=== PATIENT | male | born 1955 | race Caucasian/White ===

== ENCOUNTER 2017-02-19 18:14 | Emergency (ER) | payer MEDICAID ==
[2017-02-19 18:34] VITALS: BMI 23.6
[2017-02-19 18:35] VITALS: BP 146/96; PULSE 75; RESP 18; TEMP 98.4; O2SAT 98
--- NOTE | 2017-02-19 19:51 | C.PDOC ---
History Of Present Illness 61 year old male complains of cough productive of white phlegm for 5 days reports feeling wheeze this evening. Patient was a former smoker, quit 6 years ago. Time Seen by Provider: 02/19/17 19:27 Chief Complaint (Nursing): Cough, Cold, Congestion History Per: Patient History/Exam Limitations: no limitations Onset/Duration Of Symptoms: Days Current Symptoms Are (Timing): Still Present Associated Symptoms: Cough, Sputum Past Medical History Reviewed: Historical Data, Nursing Documentation, Vital Signs Vital Signs: Last Vital Signs Temp 98.4 F 02/19/17 18:34 Pulse 75 02/19/17 19:53 Resp 18 02/19/17 19:53 BP 146/96 H 02/19/17 18:34 Pulse Ox 98 02/19/17 19:53 - Medical History PMH: Asthma, HTN, Hypercholesterolemia Surgical History: No Surg Hx Family History: States: Unknown Family Hx - Social History Hx Tobacco Use: No (quit 6 years ago) Hx Alcohol Use: No Hx Substance Use: No - Immunization History Hx Tetanus Toxoid Vaccination: No Hx Influenza Vaccination: No Hx Pneumococcal Vaccination: No Review Of Systems Constitutional: Negative for: Fever, Weakness, Malaise Eyes: Negative for: Pain ENT: Positive for: Nose Congestion. Negative for: Ear Pain, Throat Pain Cardiovascular: Negative for: Chest Pain, Palpitations Respiratory: Positive for: Cough, Sputum, Wheezing. Negative for: Shortness of Breath, Pleuritic Pain Gastrointestinal: Negative for: Vomiting, Abdominal Pain, Diarrhea Musculoskeletal: Negative for: Neck Pain, Back Pain Skin: Negative for: Rash Neurological: Negative for: Headache, Dizziness Physical Exam - Physical Exam Appears: Non-toxic, No Acute Distress Skin: Warm, Dry, No Diaphoretic, No Pale, No Rash Head: Atraumatic, Normacephalic Eye(s): bilateral: Normal Inspection, PERRL, EOMI Ear(s): Bilateral: Normal (no erythema) Nose: Normal, No Flaring Oral Mucosa: Moist Throat: Normal, No Erythema, No Exudate, No Drooling, No Mass Neck: Normal ROM Chest: Symmetrical Cardiovascular: Rhythm Regular, No Murmur Respiratory: Normal Breath Sounds, No Rales, No Rhonchi, Wheezing (expiratory wheeze) Extremity: Bilateral: Atraumatic, Normal Color And Temperature, Normal ROM Neurological/Psych: Oriented x3, Normal Speech ED Course And Treatment O2 Sat by Pulse Oximetry: 98 Medical Decision Making Medical Decision Making: Symptoms consistent with URI. Patient has no fever and stable vital signs during ER evaluation. No repiratory distress and O2 sat is 98%. Patient feels comfortable going home and will be discharged. Patient given follow up instructions. Instructed to return to ER if symptoms worsen or new symptoms arise. Disposition Counseled Patient/Family Regarding: Diagnosis, Need For Followup, Rx Given - Disposition Referrals: Maynor Babb MD [Medical Doctor] - Disposition: HOME/ ROUTINE Disposition Time: 19:49 Condition: STABLE Additional Instructions: Vaya a griffin mdico o la clnica en 1-3 hay sin falta, para mas evaluacin. [place] los medicamentos lucrecia indicado. Volver a la soo de emergencia en cualquier momento si los sntomas persisten o empeoran. Prescriptions: Albuterol HFA [Ventolin HFA 90 mcg/actuation (8 g)] 1 puff IH Q4 #1 puff Azithromycin 1 tab PO DAILY #4 tab Promethazine DM [Phenergan DM Syrup] 5 ml PO Q8 PRN #3 oz PRN Reason: Cough Instructions: Upper Respiratory Infection (ED) Print Language: MAURITIAN - POA Present On Arrival: None - Clinical Impression Clinical Impression: Upper respiratory infection - PA / [employer] / Resident Statement / has reviewed & agrees with the documentation as recorded.
== END 2017-02-19 19:56 | disposition home or self-care (01) ==
LOC: C.ER 18:14
DX: J06.9 Acute upper respiratory infection, unspecified (principal)